=== PATIENT | male | born 1965 | race Caucasian/White ===

== ENCOUNTER 2025-04-01 09:58 | Emergency (ER) | payer SELFPAY ==
[2025-04-01 10:03] VITALS: BP 153/105
[2025-04-01] MEDS: TORADOL 15 MG IM (11:40)
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
--- NOTE | 2025-04-01 15:14 | EDRN ---
Discharged: This RN went to go discharge patient with discharge papers and found no patient in assigned room. It appears the patient left. Patient left the ER but was discharged
== END 2025-04-01 15:18 | disposition home or self-care (01) ==
LOC: EMR 09:58
PROVIDERS: EMERGENCY PHYSICIAN Student in an Organized Health Care Education/Training Program
DX: S22.32XA Fracture of one rib, left side, initial encounter for closed fracture (principal); W10.8XXA Fall (on) (from) other stairs and steps, initial encounter; I10 Essential (primary) hypertension; Z87.891 Personal history of nicotine dependence
CPT/HCPCS: 96372; 99284; 71101